=== PATIENT | female | born 1990 | race African-American/Black ===

== ENCOUNTER 2019-01-25 05:40 | Inpatient (IN) ==
[2019-01-25] MEDS ORDERED: LACTATED RINGERS 250 ML IV ONE (05:49)
[2019-01-25] MEDS ORDERED: ONDANSETRON 4 MG/2 ML VIAL IV PRN ×2 (05:49→08:35)
[2019-01-25] MEDS ORDERED: CITRIC ACID/SODIUM CITRATE 30 ML UDCUP PO ONE (05:59)
[2019-01-25] MEDS ORDERED: ceFAZolin 2,000 MG in PREMIX 1 EACH IV ONE (05:59)
[2019-01-25] MEDS ORDERED: FAMOTIDINE 20 MG/2 ML VIAL IV SCH (06:00)
[2019-01-25] MEDS ORDERED: ePHEDrine 50 MG/ML AMP IV PRN (06:01)
[2019-01-25] MEDS: LACTATED RINGERS 1,000 ML IV SCH ×2 (06:25→21:30)
[2019-01-25 06:33] LABS: Basophils % 0.1 % (0.0-0.8); Hematocrit 39.7 VOL% (35.7-47.0); Hemoglobin 12.7 GM/DL (12.0-16.0); Immature Granulocytes % 0.8 %; Immature Granulocytes Absolute 0.11 #; Lymphocytes # 1.4 10*3/uL (1.4-4.0); Lymphocytes % 9.6 % (21.3-54.2); Mean Corpuscular Hemoglobin 28 PG (27-34); Mean Corpuscular Volume 88.2 FL (87-102); Mean Platelet Volume 11.9 FL (9.6-12.0); Monocytes # 0.8 10*3/uL (0.11-0.8); Monocytes % 5.1 % (1.7-12.7); Neutrophils # 12.3 10*3/uL (1.4-7.4); Neutrophils % 84.4 % (38.7-73.9); Platelet Count 198 T/CUMM (130-400); Red Cell Distribution Width 14.2 % (9.3-17.3); White Blood Count 14.6 T/CUMM (4-12)
[2019-01-25] MEDS ORDERED: BUPIVACAINE SPINAL 0.75% 2 ML AMP SPINAL ONE (06:47)
[2019-01-25] MEDS ORDERED: OXYTOCIN/LR 20 UNIT/1,000 ML BAG IV ONE ×2 (07:00→08:35)
[2019-01-25 07:03] LABS: Apearance,Urine CLEAR (Clear); Bilirubin,Urine Negative (Negative); Blood, Urine Negative (Negative); Glucose,Urine (UA) Negative (Negative); Ketones,Urine 80 mg/dL (Negative); Mucus,Urine Few /LPF (Occasional); Nitrite,Urine Negative (Negative); Protein,Urine Negative; RBC,Urine 4 /HPF (0-4); Squamous Epithelial Cell,Urine Occasional /HPF (0-10); Urine Color Yellow (Yellow); Urine Specific Gravity 1.017 (1.001-1.035); Urine Urobilinogen < 2.0 EU/DL (0.2-1.0); WBC,Urine 1 /HPF (0-6)
[2019-01-25] MEDS ORDERED: WITCH HAZEL PADS 100/JAR TOP PRN (08:35)
[2019-01-25] MEDS ORDERED: BISACODYL 10 MG SUPP RECTAL PRN (08:35)
[2019-01-25] MEDS ORDERED: LANOLIN 50% CREAM 0.3 OZ TUBE TOP PRN (08:35)
[2019-01-25] MEDS ORDERED: ACETAMINOPHEN 325 MG TABLET PO PRN (08:35)
[2019-01-25] MEDS ORDERED: oxyCODONE/ACETAMINOPHEN 5-325 MG TABLET PO PRN (08:35)
[2019-01-25] MEDS ORDERED: HYDROCORTISONE 2.5% RECTAL CREAM 30 GM TUBE TOP PRN (08:35)
[2019-01-25] MEDS ORDERED: BENZOCAINE 20%/MENTHOL 0.5% SPRAY 56 GM CAN TOP PRN (08:35)
[2019-01-25 08:38] LABS: Cord Arterial Blood HCO3 20.2 MMOL/L
[2019-01-25 08:41] LABS: Cord Venous Blood HCO3 20.7 MMOL/L; Cord Venous Blood PCO2 47.4 MMHG; Cord Venous Blood PO2 22.6
[2019-01-25 08:47] LABS: Cord Arterial Blood HCO3 17.6 MMOL/L
[2019-01-25 08:51] LABS: Cord Venous Blood HCO3 19.4 MMOL/L; Cord Venous Blood PCO2 50.3 MMHG; Cord Venous Blood PO2 21.2
[2019-01-25] MEDS ORDERED: MORPHINE 10 MG/10 ML VIAL ONE (08:56)
[2019-01-25] MEDS ORDERED: PROPOFOL 200 MG/20 ML VIAL IV ONE (08:56)
[2019-01-25] MEDS ORDERED: ONDANSETRON 4 MG/2 ML VIAL ONE (08:56)
[2019-01-25] MEDS ORDERED: PHENYLEPHRINE 1 MG/10 ML SYRINGE IV ONE (08:56)
[2019-01-25] MEDS ORDERED: DEXAMETHASONE 4 MG/1 ML VIAL ONE (08:56)
[2019-01-25] MEDS ORDERED: LACTATED RINGERS 1,000 ML IV ONE (08:57)
[2019-01-25] MEDS ORDERED: RHO(D) IMMUNE GLOBULIN 300 MCG SYRINGE IM ONE (09:00)
[2019-01-25] MEDS ORDERED: DIPH/TET/ACEL PERT BOOSTER VACCINE 0.5 ML VIAL IM ONE (09:00)
[2019-01-25] MEDS ORDERED: MEASLES/MUMPS/RUBELLA VACCINE 0.5 ML VIAL SUBCUT ONE (09:00)
[2019-01-25] MEDS ORDERED: hydrOXYzine HCL 25 MG/1 ML VIAL IM PRN (09:19)
[2019-01-25] MEDS ORDERED: diphenhydrAMINE 50 MG/1 ML VIAL IV PRN (09:19)
[2019-01-25] MEDS: HYDROmorphone 2 MG/1 ML VIAL IV PRN ×2 (09:46→14:15)
[2019-01-25] MEDS: ceFAZolin 1,000 MG in SYRINGE 1 EACH IV SCH ×2 (14:16→21:26)
[2019-01-25] MEDS: DOCUSATE SODIUM 100 MG CAPSULE PO SCH ×2 (15:16→21:48)
[2019-01-25] MEDS: oxyCODONE/ACETAMINOPHEN 5-325 MG TABLET PO PRN (20:00)
[2019-01-26] MEDS: IBUPROFEN 800 MG TABLET PO PRN ×3 (03:00→16:21)
[2019-01-26] MEDS: oxyCODONE/ACETAMINOPHEN 5-325 MG TABLET PO PRN ×3 (03:01→16:22)
[2019-01-26 05:24] LABS: Basophils # 0.1 10*3/uL (0.0-0.2); Basophils % 0.2 % (0.0-0.8); Hemoglobin 8.7 GM/DL (12.0-16.0); Immature Granulocytes Absolute 0.21 #; Lymphocytes # 2.2 10*3/uL (1.4-4.0); Lymphocytes % 10.3 % (21.3-54.2); Mean Corpuscular HGB Conc 31.1 GM/DL (32-36); Mean Corpuscular Hemoglobin 28 PG (27-34); Mean Corpuscular Volume 89.5 FL (87-102); Mean Platelet Volume 11.4 FL (9.6-12.0); Monocytes # 1.7 10*3/uL (0.11-0.8); Monocytes % 7.8 % (1.7-12.7); Neutrophils # 17.4 10*3/uL (1.4-7.4); Neutrophils % 80.7 % (38.7-73.9); Platelet Count 149 T/CUMM (130-400); Red Blood Count 3.13 MC/CUMM (3.8-5.5); Red Cell Distribution Width 14.2 % (9.3-17.3); White Blood Count 21.6 T/CUMM (4-12)
[2019-01-26 05:48] LABS: Hypochromasia 1+; Lymphocytes 7 % (20-55); Segmented Neutrophils 86 % (50-85); Total Cells Counted 100
[2019-01-26 05:49] LABS: Microcytosis 1+; Platelet Estimate Adequate
[2019-01-26] MEDS: DOCUSATE SODIUM 100 MG CAPSULE PO SCH ×2 (09:48→21:27)
[2019-01-26] MEDS ORDERED: MAGNESIUM HYDROXIDE SUSP 30 ML UDCUP PO PRN (16:25)
[2019-01-27] MEDS: oxyCODONE/ACETAMINOPHEN 5-325 MG TABLET PO PRN ×2 (01:31→14:27)
[2019-01-27] MEDS: IBUPROFEN 800 MG TABLET PO PRN ×2 (01:32→08:58)
[2019-01-27 07:45] VITALS: BP 105/59
[2019-01-27] MEDS: DOCUSATE SODIUM 100 MG CAPSULE PO SCH (09:00)
== END 2019-01-27 17:40 | disposition home or self-care (01) | DRG 540 ==
LOC: N.LDOUT 05:40 → N.LD 05:43 → N.OB 13:45
PROVIDERS: ADMIT Specialist; ATTEND Specialist